=== PATIENT | female | born 1975 | race Caucasian/White ===

== ENCOUNTER 2021-06-13 18:47 | Inpatient (IN) | payer MEDICAID, SELFPAY ==
[2021-06-13 18:50] VITALS: BP 132/83; PULSE 92; RESP 16; TEMP 36.5; O2SAT 97; BMI 22.4
[2021-06-13 18:51] VITALS: BP 132/83; PULSE 92; RESP 16; TEMP 36.5; O2SAT 97
[2021-06-13 19:31] LABS: Absolute Lymphocyte Count 1.64 X10^3/uL (0.83-4.51); Absolute Neutrophil Count 7.2 X10^3/uL (2.0-7.7); Basophil# 0.06 X10^3/uL; Basophil% 0.6 % (0-1); Eosinophil# 0.11 X10^3/uL; Eosinophils% 1.2 % (0-5); Hematocrit 42.2 % (37-47); Hemoglobin 13.1 g/dL (12.0-15.0); Lymphocyte # 1.64 X10^3/ul (0.83-4.51); Lymphocyte % 17.4 % (19-41); Mean Corpuscular Hgb 27.5 pg (27.0-32.0); Mean Corpuscular Volume 88.7 fL (81-99); Mean Platelet Vol. 9.5 fl (6.2-12.0); Monocyte# 0.42 X10^3/uL; Monocyte% 4.4 % (0-10); NRBC Flagged by Analyzer 0 % (0-5); Neutrophil # 7.19 X10^3/uL (2.7-7.7); Neutrophil % 76.1 % (47-70); Platelet Count 400 K/mm3 (150-450); RBC Distribution Width CV 14.3 % (11.6-14.6); RBC Distribution Width SD 46.1 fl (35.1-43.9); Red Blood Count 4.76 M/mm3 (4.2-5.4); White Blood Count 9.5 K/mm3 (4.4-11.0)
[2021-06-13 19:44] LABS: Internal QC Validated? YES +Cl - CLEAR BKGD; Pregnancy, Serum, hCG Quali. NEGATIVE Negative
--- NOTE | 2021-06-13 19:48 | EX.ED.DYSGE1 ---
HPI History of Present Illness Chief Complaint: Substance Abuse Informant: patient Narrative Narrative: Patient is a 46-year-old previously healthy female who presents to the emergency department for fentanyl detox. She states that she has been using this regularly for the past 6 months. Prior to that she was on opioid pills. She states she was around a half a gram of fentanyl per day. She typically snorts or smokes it. She denies ever injecting. She denies issues with other drugs. She states that she did previously drink but she no longer drinks. She last used today. She has been having some nausea as well as pain. She states that she does have trigeminal neuralgia as well as chronic back problems which spurred her to start taking the pills. She has never been through a detox program before in the past. [facility] Medical History (Updated 06/13/21 @ 22:[address] Jose Angel Bernard DO) Anxiety Back pain Depression Hemicrania continua Migraines Seizures Smoker Substance abuse Allergy/AdvReac Type Severity Reaction Status Date / Time No Known Allergies Allergy Verified 06/13/21 18:52 Family History Other Depression Hypertension Kidney disease Surgical History Previous section Social History Smoking Status: Current every day smoker tobacco type: cigarettes ROS ROS ED Constitutional Constitutional ED: Denies chills or fever(s) Eyes Eyes: Denies change in vision ENT ENT ED: Denies epistaxis or rhinorrhea Cardiovascular Cardiovascular: Denies chest pain or palpitations Respiratory/Chest Respiratory/Chest: Denies cough, dyspnea or dyspnea on exertion Gastrointestinal Gastrointestinal: Reports nausea; Denies abdominal pain, diarrhea or vomiting Genitourinary Genitourinary ED: Denies dysuria, hematuria or urinary frequency Musculoskeletal Musculoskeletal: Reports back pain; Denies neck pain Integumentary Denies rash Neurologic Neurologic: Denies dizziness, headache(s) or weakness EXAM Physical Exam Const Vital Signs: 06/13/21 18:50 06/13/21 18:51 Temperature 97.7 F L 97.7 F L Temperature Source Temporal Temporal Pulse Rate 92 92 Respiratory Rate 16 16 Blood Pressure 132/83 H 132/83 H Blood Pressure Mean 99 99 Pulse Ox 97 97 Oxygen Delivery Method Room Air Room Air Positive well nourished and well developed General Appearance ED: well developed and NAD HEENT Reports normocephalic, head/scalp atraumatic and moist mucous membranes Eyes PERRL and EOMs intact bilaterally Neck supple Chest Wall inspection of chest normal Resp normal respiratory effort and clear to auscultation bilaterally Auscultation: Negative for rales, rhonchi or wheezes Cardio regular rate, regular rhythm and no murmurs GI normal to inspection, nondistended, normoactive bowel sounds and non-tender Palpation: soft; Negative for guarding or rebound tenderness present Back/Spine no CVA tenderness Extremity normal to inspection General Extremety ED: Negative for edema or tenderness General Extremity: Negative for edema Neuro oriented x3, CN's II-XII intact bilaterally and no sensory deficits noted Sensorium / Orientation: alert Motor Exam: strength 5/5 throughout Psych mental status grossly normal Skin no rashes or lesions noted MDM MDM MDM Narrative Medical decision making narrative: Patient presents the ED to detox from fentanyl. She last used today. On arrival to the ED vital signs within normal limits. She is a benign physical exam. Will check basic lab work and discuss case with hospitalist for admission. Patient's lab work did not reveal a significant acute abnormality. She otherwise has remained stable throughout ED stay. Will bring into the hospital for further evaluation and management this time. She understands and is agreeable this plan. Lab Data Labs: Laboratory Results - last 24 hr 06/13/21 06/13/21 06/13/21 19:21 19:21 19:21 WBC 9.5 RBC 4.76 Hgb 13.1 Hct 42.2 MCV 88.7 MCH 27.5 MCHC 31.0 L RDW Std Deviation 46.1 H RDW Coeff of Bandar 14.3 Plt Count 400 MPV 9.5 Immature Gran % (Auto) 0.300 Neut % (Auto) 76.1 H Lymph % (Auto) 17.4 L [place] % (Auto) 4.4 Eos % (Auto) 1.2 Baso % (Auto) 0.6 Absolute Neuts (auto) 7.2 Absolute Lymphs (auto) 1.64 Nucleated RBC % 0 Sodium 141 Potassium 3.6 Chloride 108 H Carbon Dioxide 28.0 Anion Gap 5 BUN 13 Creatinine 0.66 Estim Creat Clear Calc 101.83 Est GFR (MDRD) Af Amer 125 Est GFR (MDRD) Non-Af 103 BUN/Creatinine Ratio 19.7 Glucose 89 Calcium 8.3 L Total Bilirubin 0.60 AST 15 ALT 27 Alkaline Phosphatase 93 Total Protein 7.3 Albumin 3.5 Globulin 3.8 Albumin/Globulin Ratio 0.9 Serum , Qual Ethyl Alcohol 5.0 06/13/21 19:21 WBC RBC Hgb Hct MCV MCH MCHC RDW Std Deviation RDW Coeff of Bandar Plt Count MPV Immature Gran % (Auto) Neut % (Auto) Lymph % (Auto) [place] % (Auto) Eos % (Auto) Baso % (Auto) Absolute Neuts (auto) Absolute Lymphs (auto) Nucleated RBC % Sodium Potassium Chloride Carbon Dioxide Anion Gap BUN Creatinine Estim Creat Clear Calc Est GFR (MDRD) Af Amer Est GFR (MDRD) Non-Af BUN/Creatinine Ratio Glucose Calcium Total Bilirubin AST ALT Alkaline Phosphatase Total Protein Albumin Globulin Albumin/Globulin Ratio Serum , Qual NEGATIVE Ethyl Alcohol Discharge Plan Dx/Rx/DC Orders Clinical Impression: Opioid abuse, Desire for detoxification Disposition Disposition: Acute Care Hospital [facility] Discharge Date/Time: 06/13/21 20:36
[2021-06-13 19:49] LABS: ALB/GLOB Ratio 0.9 RATIO (0.9-2.4); AST(SGOT) 15 U/L (15-37); Alanine Aminotransfer ALT/SGPT 27 U/L (13-56); Albumin, Serum 3.5 g/dL (3.2-5.0); Alkaline Phosphatase 93 U/L (45-117); Anion Gap 5 (5-15); BUN 13 mg/dL (7-18); BUN/Creat Ratio 19.7 RATIO (10-20); Calcium,Total 8.3 mg/dL (8.5-10.1); Chloride 108 mmol/L (98-107); Creatinine, Serum 0.66 mg/dL (0.55-1.02); EST Glomerular Filtration Rate 103 mL/min (>60); Est Glom Filt Rate - Afr Amer 125 mL/min (>60); Estimated Creatinine Clearance 101.83 ml/min; Globulin 3.8 g/dL (2.2-4.2); Glucose 89 mg/dL (74-106); Potassium 3.6 mmol/L (3.5-5.1); Protein, Total 7.3 g/dL (6.4-8.2); Sodium Level 141 mmol/L (136-145)
--- NOTE | 2021-06-13 20:14 | PCM.HP.STD ---
HPI - General General Date of Admission: 06/13/21 HPI Narrative JEAN-PIERRE MALDONADO, is a 46 F with a significant history of hemicrania continua; chronic back pain ; and opioid abuse who presents to emergency department with help with detoxification. Reportedly previously he was using Percocet for his chronic pain but because he is no longer using Percocet he resorted to using fentanyl. He snorts and smokes fentanyl. For the past 9 months he has been using fentanyl intermittently and for the past 4 to 5 months he has been using fentanyl every day. He uses about half a gram of fentanyl daily. The last time he used fentanyl was about 10 hours prior to presentation. He started having withdrawal symptoms about 2 hours prior to presentation. He describes her withdrawal symptoms as restless leg; nausea; leg pain; chills; abdominal upset; watery eyes and rhinorrhea. His ex- who is always together with her also came to the emergency department for detoxification [facility] Medical History Back pain Hemicrania continua Substance abuse Allergy/AdvReac Type Severity Reaction Status Date / Time No Known Allergies Allergy Verified 06/13/21 18:52 Family History Other Depression Hypertension Kidney disease Surgical History Previous section Social History Smoking Status: Current every day smoker tobacco type: cigarettes ROS ROS Narrative Constitutional: Denies anorexia and change in weight Eyes: Reports watery eyes. Denies blurry vision, change in eye color, change in vision. HEENT: Reports rhinorrhea. Denies abnormal hearing, dysphagia, ear pain, epistaxis, headache(s), Cardiovascular: Denies chest pain. Denies dyspnea on exertion, orthopnea and paroxysmal nocturnal dyspnea Respiratory/Chest: Denies cough, excessive phlegm production, shortness of breath with exertion and wheezing Gastrointestinal: Denies abdominal pain, coffee ground emesis, constipation, diarrhea, dyspepsia, hematemesis, hematochezia, loose stools, melena, nausea, vomiting or other Genitourinary: Denies burning urination, difficulty urinating, dysuria, hematuria, nocturia, urinary frequency, urinary hesitancy, urinary incontinence, urinary urgency or other Musculoskeletal: Reports bilateral leg pain. Denies arthralgias. Neurologic: Denies abnormal gait, abnormal speech, confusion, disequilibrium, dizziness, focal weakness, headache(s), numbness, paresthesias, seizure-like activity, seizures, syncope, tingling, tremor(s) or other Psychiatric: Denies anxiety, depression, homicidal ideation, suicidal ideation or other Endocrinology: Denies change in body appearance, cold intolerance, excessive sweating, heat intolerance, polydipsia, polyuria or other Hematologic/Lymphatic: Denies anemia, easy bleeding, easy bruising, lymphadenopathy or other Integumentary: Denies ulcer on buttocks. Allergic/Immunologic: Denies rhinitis, hives, eczema, asthma or other Vital Signs Vital Signs Vital Signs: 06/13/21 18:50 06/13/21 18:51 Temperature 97.7 F L 97.7 F L Temperature Source Temporal Temporal Pulse Rate 92 92 Respiratory Rate 16 16 Blood Pressure 132/83 H 132/83 H Blood Pressure Mean 99 99 Pulse Ox 97 97 Oxygen Delivery Method Room Air Room Air Weight Weight: 63 kg Body Mass Index (BMI) 22.4 Physical Exam Narrative Physical exam: General: Well-nourished, well-developed, no acute distress Head: Normocephalic, atraumatic, no tenderness Eyes: PERRLA, EOMI ENT, no trauma, moist mucous membranes, no rhinorrhea Neck: Nontender, full range of motion, no spinal tenderness, deformities, step-off CVS: Regular rate and rhythm Respiratory no acute distress, clear to auscultation bilaterally, chest wall nontender, no wheezing Abdomen: Soft, nontender, nondistended, normal bowel sounds, no masses : Deferred Back: Nontender, no CVA tenderness, no midline spinal tenderness, deformities, step-offs Extremities: Nontender full range of motion, no trauma Skin: Normal color, no trauma, abrasions Neuro: Alert, oriented, cranial nerves II through XII grossly intact. Psychiatry: Yawning continuously. Restless. Results Lab / Micro Data Result Diagrams: 06/13/21 19:21 06/13/21 19:21 Labs: Laboratory Results - last 24 hr 06/13/21 19:21: WBC 9.5, RBC 4.76, Hgb 13.1, Hct 42.2, MCV 88.7, MCH 27.5, MCHC 31.0 L, RDW Std Deviation 46.1 H, RDW Coeff of Bandar 14.3, Plt Count 400, MPV 9.5, Immature Gran % (Auto) 0.300, Neut % (Auto) 76.1 H, Lymph % (Auto) 17.4 L, [place] % (Auto) 4.4, Eos % (Auto) 1.2, Baso % (Auto) 0.6, Absolute Neuts (auto) 7.2, Absolute Lymphs (auto) 1.64, Nucleated RBC % 0 06/13/21 19:21: Sodium 141, Potassium 3.6, Chloride 108 H, Carbon Dioxide 28.0, Anion Gap 5, BUN 13, Creatinine 0.66, Estim Creat Clear Calc 101.83, Est GFR (MDRD) Af Amer 125, Est GFR (MDRD) Non-Af 103, BUN/Creatinine Ratio 19.7, Glucose 89, Calcium 8.3 L, Total Bilirubin 0.60, AST 15, ALT 27, Alkaline Phosphatase 93, Total Protein 7.3, Albumin 3.5, Globulin 3.8, Albumin/Globulin Ratio 0.9 06/13/21 19:21: Ethyl Alcohol 5.0 06/13/21 19:21: Serum , Qual NEGATIVE Assessment & Plan Assessment/Plan (1) Tobacco abuse: (2) Opioid abuse: (3) Desire for detoxification: PLAN: The patient is a 46 year old M/F with a significant history of hemicranial continuum; chronic back pain and opioid abuse who presents emergency department with help with opioid detoxification Opioid dependence and withdrawal Patient be started on Subutex and other adjunctive medications: Gabapentin as needed; dicyclomine as needed; Vistaril as needed; methocarbamol as needed; clonidine as needed; Imodium as needed; trazodone as needed and Zofran as needed. Monitor COWS and CINA score Tobacco abuse Counseled Nicotine patch prescribed. DVT prophylaxis Low risk Encourage to ambulate Charges/Coding Visit Charges Inpatient E&M: 28253 Init Hosp L2
[2021-06-13 20:17] VITALS: BP 132/83; PULSE 93; RESP 16; TEMP 36.7; O2SAT 98
[2021-06-13 20:43] LABS: Amphetamine Urine VISTA NEGATIVE (<1000 ng/mL); Barbiturate Urine VISTA NEGATIVE (< 200 ng/mL); Benzodiazepine Urine VISTA NEGATIVE (< 200 ng/mL); Cocaine Urine VISTA NEGATIVE (< 300 ng/mL); Ecstacy Urine VISTA NEGATIVE (< 500 ng/mL); Methadone Urine VISTA NEGATIVE (< 300 ng/mL); PCP Urine VISTA NEGATIVE (< 25 ng/mL); THC Urine VISTA NEGATIVE (< 50 ng/mL); Vista UDS pH Range 6
[2021-06-13 20:46] VITALS: BMI 22.1
[2021-06-13 20:59] VITALS: BP 116/77; PULSE 83; RESP 18; TEMP 37.3; O2SAT 100
[2021-06-13] MEDS: Buprenorphine HCl 2 MG TAB.SUBL SL (21:52)
[2021-06-13] MEDS: Gabapentin 300 MG Capsule PO (21:52)
[2021-06-13] MEDS: Methocarbamol 750 MG Tablet 1500 MG PO (21:55)
[2021-06-13] MEDS: traZODone 100 MG Tablet PO (23:11)
[2021-06-13] MEDS: Dicyclomine 10 MG Capsule 20 MG PO (23:11)
[2021-06-13] MEDS: cloNIDine HCl 0.1 MG Tablet PO (23:11)
[2021-06-13] MEDS: hydrOXYzine PAM 25 MG Capsule 50 MG PO (23:41)
[2021-06-14 02:59] VITALS: BP 142/96; PULSE 84; RESP 16; TEMP 36.8; O2SAT 98
[2021-06-14] MEDS: Methocarbamol 750 MG Tablet 1500 MG PO ×3 (04:13→20:26)
[2021-06-14] MEDS: Buprenorphine HCl 2 MG TAB.SUBL SL ×3 (06:06→21:25)
[2021-06-14] MEDS: Gabapentin 300 MG Capsule PO ×2 (06:09→14:03)
[2021-06-14 10:26] VITALS: BP 124/45; PULSE 72; RESP 20; TEMP 37.3; O2SAT 97
[2021-06-14] MEDS: hydrOXYzine PAM 25 MG Capsule 50 MG PO ×2 (10:36→20:26)
[2021-06-14] MEDS: Dicyclomine 10 MG Capsule 20 MG PO ×2 (10:37→18:20)
[2021-06-14] MEDS: cloNIDine HCl 0.1 MG Tablet PO (10:37)
--- NOTE | 2021-06-14 10:53 | ADDICTION ---
This underwriter mortgage loan attempted to meet with PT. PT reported that she is not feeling well today and that she would like to meet tomorrow. This underwriter mortgage loan will attempt to meet with PT on 06/15/21.
[2021-06-14 14:05] VITALS: BP 112/70; PULSE 75; RESP 18; TEMP 37.1; O2SAT 100
[2021-06-14] MEDS: Ondansetron 8 MG Tablet PO (14:10)
[2021-06-14 18:03] VITALS: BP 137/80; PULSE 78; RESP 16; TEMP 37.7; O2SAT 100
--- NOTE | 2021-06-14 20:25 | PCM.PN.HOSP ---
Subjective Subjective Patient was seen and examined today, she does not appear to be anxious or tremorous at this time. She does appear to be somnolent. She states she is talked with addiction social welfare research worker today. Objective Data Objective Data Vital Signs: Vital Signs Temp Pulse Resp BP Pulse Ox 99.9 F H 78 16 137/80 H 100 06/14/21 18:03 06/14/21 18:03 06/14/21 18:03 06/14/21 18:03 06/14/21 18:03 Oxygen Delivery Method Room Air Weight: 62.3 kg Body Mass Index (BMI) 22.1 Intake & Output: Intake and Output for Last 24 Hours 06/12/21 06/13/21 06/14/21 23:59 23:59 23:59 Intake Total 250 / 250 440 / 440 Balance 250 / 250 440 / 440 Medical Nutrition Assessment Dietitian: Nutrition Therapy Diagnosis Start: 06/14/21 14:14 Freq: Status: Active Protocol: Document 06/14/21 14:28 ALEJANDRO (Rec: 06/14/21 14:29 [facility] [id number]) Nutrition Malnutrition Evidence of Malnutrition Exists Yes Malnutrition (severe): Acute Illness/Injury Evidenced By Suboptimal Energy Intake ( Severe),Weight Loss (Severe) Clinical Problem Acute Disease or Injury Related Malnutrition Etiology related to increased pain and nausea/vomiting Signs/Symptoms as evidenced by 5.3% wt loss x 1 wk and <75% po intake x >5 days per pt Status Active Problem Recommendation Dietitian Recommendations/Changes Will continue regular diet Will continue ensure enlive w/ medpass 4x/day Lab / Micro Data Result Diagrams: 06/13/21 19:21 06/13/21 19:21 Labs: Laboratory Results - last 24 hr 06/13/21 20:25: Urine Opiates Screen NEGATIVE, Urine Methadone Screen NEGATIVE, Ur Barbiturates Screen NEGATIVE, Ur Phencyclidine Scrn NEGATIVE, Ur Amphetamines Screen NEGATIVE, U Methamphetamin-MDMA NEGATIVE, U Benzodiazepines Scrn NEGATIVE, Urine Cocaine Screen NEGATIVE, U Cannabinoids Screen NEGATIVE, Ur Drug Screen Comment
[2021-06-14] MEDS: traZODone 100 MG Tablet PO (21:25)
[2021-06-14 22:30] VITALS: BP 127/90; PULSE 77; RESP 16; TEMP 37.7; O2SAT 98
[2021-06-15 05:00] VITALS: BP 127/64; PULSE 69; RESP 16; TEMP 37.3; O2SAT 99
[2021-06-15] MEDS: Ondansetron 8 MG Tablet PO (05:44)
[2021-06-15] MEDS: Buprenorphine HCl 2 MG TAB.SUBL SL ×2 (05:44→13:14)
--- NOTE | 2021-06-15 09:35 | ADDICTION ---
This clinical writer met with PT to conduct ASAM, MSE, DUDIT assessments and to plan for d/c. All assessments completed. PT plans to f/u with [facility] post d/c from [facility] for ongoing treatment related to opioid use disorder. PT reports that she has independent transportation.
[2021-06-15 09:45] VITALS: PULSE 84
[2021-06-15] MEDS: hydrOXYzine PAM 25 MG Capsule 50 MG PO (09:46)
[2021-06-15 13:13] VITALS: BP 149/95; PULSE 88; RESP 16; TEMP 37.4; O2SAT 99
--- NOTE | 2021-06-18 09:07 | PCM.DC.SUM ---
Providers Date of Admission: 06/13/21 Date of Discharge: 06/15/21 Primary Care Physician: MEGGAN AGUIRRE Reason For Visit: OPIOID DETOXIFICATION Diagnosis Discharge Diagnosis (1) Tobacco abuse: Status: Acute Code(s): Z72.0 - Tobacco use (2) Opioid abuse: Status: Acute Code(s): F11.10 - Opioid abuse, uncomplicated (3) Desire for detoxification: Status: Acute Plan: 1. Acute opiate withdrawal #2 opioid abuse #3 noncompliance with medical regimen Hospital Course Operations None Procedures None Summary of Care Provided Minutes Spent on Discharge: 31 Hospital Course: This 46-year-old white female was seen in the emergency room at [facility] requesting inpatient services for detox from opiates. Patient was admitted to [place] [address] and orders were entered using the opiate detoxification order set. Patient saw addiction psychosocial rehabilitation counselor but had minimal conversation with the psychosocial rehabilitation counselor and no plan was formulated for follow-up care after discharge from the hospital. Patient was seen and examined on 06/15/2021: On examination she appeared in good health and spirits, she does not appear to be in any distress. Vital signs as documented. Skin warm and dry and without overt rashes. Neck without JVD, thyroid appears normal, trachea is midline, neck is supple. Lungs clear, normal air movement was noted. Heart exam notable for regular rhythm, normal sounds and absence of murmurs, rubs or gallops. Abdomen unremarkable and without evidence of organomegaly, masses, or abdominal aortic enlargement, bowel sounds are present in all 4 quadrants, no abdominal tenderness was noted. Extremities nonedematous, no cyanosis was noted, no clubbing was noted. Neuro: Cranial nerves II through XII are grossly intact, no focal motor deficits were noted, sensation to light touch and pinprick is intact, motor exam 5/5 throughout. Psych: Patient is alert and oriented x3, she does not appear anxious or depressed, she does not appear agitated. On 06/15/2021, patient abruptly requested use of her telephone to be discharged from the hospital AGAINST MEDICAL ADVICE, on that date, she was discharged AGAINST MEDICAL ADVICE. Weight / BMI Weight Weight: 62.3 kg Body Mass Index (BMI) 22.1 ABG / Lab / Microbiology Data Result Diagrams: 06/13/21 19:21 06/13/21 19:21 Meaningful Use Info Meaningful Use Diagnoses (Choose all that apply): None applicable Discharge Plan Admission Admit Date/Time: 06/13/21 20:13 Attending Provider: Matthias John Discharge Orders/Prescriptions Referrals / Follow Up: MEGGAN AGUIRRE [Other] Disposition Disposition (needs filled in before D/C Order can be placed): Against Medical Advice Charges/Coding Visit Charges Inpatient E&M: 04236 Disch Hosp
== END 2021-06-15 17:20 | disposition home or self-care (01) | DRG 773 ==
LOC: ED 19:42 → MS3 20:40
PROVIDERS: Admitting Provider Hospitalist; Emergency Provider Emergency Medicine; Visit Provider Internal Medicine
DX: F11.23 Opioid dependence with withdrawal (principal); F17.210 Nicotine dependence, cigarettes, uncomplicated; G89.29 Other chronic pain; G50.0 Trigeminal neuralgia
CPT/HCPCS: 36415; 80053; 80307; 82077; 84703; 85025; 97802; 99283